=== PATIENT | male | born 1945 | race Caucasian/White ===

== ENCOUNTER 2018-05-26 15:43 | Emergency (ER) | payer BC ==
[2018-05-26] MEDS ORDERED: Ondansetron HCl/PF 4 MG/2 ML Vial ONE (16:07)
[2018-05-26] MEDS ORDERED: Ketorolac Tromethamine 30 MG/ML VIAL ONE (16:07)
[2018-05-26 16:13] LABS: Hemoglobin 15.6 g/dL (14.0-18.0); Mean Corpuscular HGB CONC 34.2 g/dL (32.0-36.0); Mean Corpuscular Hemoglobin 31.3 pg (27.0-31.0); Mean Corpuscular Volume 91.5 fL (78.0-98.0); Mean Platelet Volume 7.3 fL (7.4-10.4); Platelet Count 239 thou/uL (130-400); RBC Distribution Width 12.3 % (11.5-14.5); Red Blood Cell (RBC) Count 4.99 mill/uL (4.70-6.10); White Blood Cell (WBC) Count 10.1 thou/uL (4.8-10.8)
[2018-05-26] MEDS ORDERED: Fentanyl 100 MCG/2 ML VIAL ONE (16:15)
[2018-05-26 16:32] LABS: ALT (SGPT) 23 U/L (8-55); AST (SGOT) 24 U/L (5-34); Albumin 4.3 g/dL (3.4-4.8); Alkaline Phosphatase 69 U/L (40-150); Anion Gap 15 mmol/L (10-20); BUN (Urea Nitrogen) 24 mg/dL (8.4-25.7); Bilirubin, Total 0.5 mg/dL (0.2-1.2); Calc. Creatinine Clearance 0 mL/min (70-130); Calcium 9.4 mg/dL (7.8-10.44); Carbon Dioxide 21 mmol/L (23-31); Chloride 105 mmol/L (98-107); Estimated GFR-MDRD 61; Globulin 2.8 g/dL (2.4-3.5); Glucose 111 mg/dL (83-110); Potassium 4.6 mmol/L (3.5-5.1); Protein, Total 7.1 g/dL (5.8-8.1); Sodium 136 mmol/L (136-145)
[2018-05-26 16:42] LABS: Band 3 % (5-11); Eosinophils 1 % (0-10); Lymphocytes 13 % (21-51); MDiff Complete? YES; Monocytes 11 % (0-10); Neutrophil 71 % (42-75); PLT Morphology Comment Appears Adequate; RBC Morphology Normal; Reactive Lymphocytes 1 % (0-10)
--- NOTE | 2018-05-26 16:55 | CT ---
CT ABDOMEN AND PELVIS WITHOUT IV CONTRAST: INDICATIONS: Left-sided flank pain. FINDINGS: There is prominent wall thickening and pericolonic inflammatory stranding involving the sigmoid colon . No drainable fluid collection is grossly evident. There is a normal appendix in the right lower q uadrant. The bladder, rectum, and perirectal soft tissues are unremarkable. There is mild bibasilar atelectasis. There is a moderate prominent hiatal hernia within the lower mediastinum. There is pr ominently coronary artery and thoracic aortic calcification. There are calcified granuloma involving the liver. Unopacified pancreas and adrenal glands are unremarkable. No renal or ureteral calculus is grossly evident. No hydronephrosis is seen. There is scattered degenerative and osteoarthritic change. There is ankylosis at L4-L5. There is levoscoliosis of the lumbar spine. IMPRESSION: 1. Findings suspicious for noncomplicated colonic diverticulitis. 2. Moderate to prominent hiatal hernia. 3. Fat containing inguinal hernias. 4. Normal appendix in the right lower quadrant of the abdomen. 5. Other chronic findings as above. POS: [facility]
[2018-05-26] MEDS ORDERED: traMADol HCl 50 MG TAB ONE (17:44)
[2018-05-26] MEDS ORDERED: metroNIDAZOLE 250 MG TAB ONE ×2 (17:45→17:54)
[2018-05-26 18:31] LABS: Bilirubin Negative (Negative); Blood, Urine Negative (Negative); Clarity CLEAR (Clear); Glucose, Urine (Dipstick) Negative (Negative); Leukocyte Negative (Negative); Nitrite Negative (Negative); Protein, Urine (Dipstick) Trace mg/dL (Neg-Trace); Specific Gravity, Urine 1.025 (1.002-1.036); Urobilinogen 0.2 mg/dL (0.2-1.0)
== END 2018-05-26 19:32 | disposition home or self-care (01) ==
LOC: ERS 15:43
DX: K57.32 Diverticulitis of large intestine without perforation or abscess without bleeding (principal); I10 Essential (primary) hypertension
CPT/HCPCS: 74176; 80053; 81003; 85025; 96361; 96365; 96375; J1885; J1956; J2405; J3010